=== PATIENT | female | born 1945 | race Caucasian/White ===

== ENCOUNTER → 2018-09-26 | Day surgery (SDC) | payer MEDICARE ==
[~2018-09-26] MED LIST: ACYC800T PO; ALEN70TA6 PO; ASPI-482 PO; BIOT1TAB2 PO; CALC-98; ERYT1OIN6 OP; FLUT16SP NS; GABA300C18; HYDROmorphone 2 MG/ML VIAL IV PRN; IV RINGERS,LACTATED 1000ML 1,000 ML IV SCH; LIDOCAINE 1% PF 2 ML VIAL. ID PRN; LIDOCAINE 1% PF 2 ML VIAL. ONE; LOVA20TA2 PO; MAGN71.5 PO; MIRA50TA PO; MORPHINE SULFATE 4 MG/ML VIAL. IV PRN; MULT1TAB11 PO; OMEG500C PO; ONDA4TAB12 PO; ONDANSETRON PF 4 MG/2 ML VIAL. IV PRN; OXYB5TAB PO; OXYB5TAB7 PO; OXYC5TAB4 PO; PROCHLORPERAZINE 10 MG/2 ML VIAL. IV PRN; PROPOFOL 40 ML IV ONE; fentaNYL PF VIAL 100 MCG/2 ML VIAL IV PRN
[2018-09-26 11:00] VITALS: BP 115/68
--- NOTE | 2018-09-26 21:41 | HP ---
ADMIT DATE: 09/26/2018 REASON: Positive Cologuard. REFERRING PHYSICIAN: Dr. Carlos Peters. HISTORY OF PRESENT ILLNESS: A 73-year-old female whose past medical history is significant for osteoporosis, hyperlipidemia and history of diverticulosis as well as non-Hodgkin's lymphoma and family history of colon cancer in maternal aunt and colon polyps with her mother seen for interval exam. She had one approximately 25 years ago, which revealed diverticulosis. No diarrhea or constipation has been noted. No bleeding was noted. Weight and appetite otherwise are stable. She has no additional complaints. PAST MEDICAL HISTORY: Hyperlipidemia, osteoporosis, diverticulosis and history of non-Hodgkin's lymphoma. ALLERGIES: IODINE, PENICILLIN AND ERYTHROMYCIN. MEDICATIONS: Include bisphosphonate, Fosamax, lovastatin, magnesium chloride, Myrbetriq and multivitamin. FAMILY HISTORY: Significant for colon cancer with an aunt and colon polyps with her mother. SOCIAL HISTORY: Nonsmoker and nondrinker. PAST SURGICAL HISTORY: Status post cholecystectomy, tonsillectomy, 2, para 2. REVIEW OF SYSTEMS: As per records. PHYSICAL EXAMINATION: GENERAL: Reveals a well-nourished, well-developed female who is alert and cooperative, in no acute distress. VITAL SIGNS: Temperature 97.2, pulse 122 and respiratory rate is 20. HEENT: Normocephalic and atraumatic head. Pupils and extraocular muscles are not tested. Sclerae anicteric. NECK: Supple. LUNGS: Clear. CARDIOVASCULAR: Reveals an S1, S2 without S3, S4 or appreciable murmur. ABDOMEN: Reveals soft abdomen, normal bowel sounds without appreciable hepatosplenomegaly. EXTREMITIES: Reveals no cyanosis, clubbing or edema. IMPRESSION: Positive Cologuard test. Colorectal screening is warranted at this time. Risks and benefits of the procedure including risk of hemorrhage and perforation requiring operation have been discussed. The patient is willing to proceed. OMAR ALCAZAR MD DR: ELIUD/jae JOB#: [id number] / [id number]
== END | disposition home or self-care (01) ==
LOC: ENDOS 09:07
PROVIDERS: ATTEND Internal Medicine Gastroenterology
DX: K57.30 Diverticulosis of large intestine without perforation or abscess without bleeding (principal); K64.0 First degree hemorrhoids; Z79.899 Other long term (current) drug therapy; E78.5 Hyperlipidemia, unspecified; M81.0 Age-related osteoporosis without current pathological fracture; Z83.71 Family history of colonic polyps; Z85.72 Personal history of non-Hodgkin lymphomas; Z88.0 Allergy status to penicillin; Z88.1 Allergy status to other antibiotic agents; Z90.49 Acquired absence of other specified parts of digestive tract; Z98.890 Other specified postprocedural states; Z91.041 Radiographic dye allergy status
CPT/HCPCS: 45378; J2704

== ENCOUNTER → 2019-02-16 | Outpatient (CLI) | payer MEDICARE, BC ==
[2018-09-26 11:00] VITALS: BP 115/68
[~2019-02-16] MED LIST changes: -HYDROmorphone 2 MG/ML VIAL IV PRN; -IV RINGERS,LACTATED 1000ML 1,000 ML IV SCH; -LIDOCAINE 1% PF 2 ML VIAL. ID PRN; -LIDOCAINE 1% PF 2 ML VIAL. ONE; -MORPHINE SULFATE 4 MG/ML VIAL. IV PRN; -ONDANSETRON PF 4 MG/2 ML VIAL. IV PRN; -PROCHLORPERAZINE 10 MG/2 ML VIAL. IV PRN; -PROPOFOL 40 ML IV ONE; -fentaNYL PF VIAL 100 MCG/2 ML VIAL IV PRN
--- NOTE | 2019-02-16 09:39 | RAD ---
EXAM: US right lower extremity nonvascular DATE: 02/16/2019 7:45 AM COMPARISON: None INDICATION: Right calf, swelling due to injury last June TECHNIQUE: Longitudinal and transverse imaging completed with attention to right calf in region of pain/swelling. Contralateral imaging was also performed for comparison purposes. FINDINGS/ IMPRESSION: In the region of swelling in the right upper calf, no discrete soft tissue mass or fluid collection is identified. Equivocal hypoechoic focus within the muscular architecture may represent low-grade focal strain pattern. Electronically signed by: Zeus Gordon MD (02/16/2019 9:37 AM) [facility]
== END | disposition home or self-care (01) ==
LOC: US 07:27
PROVIDERS: ATTEND Family Medicine
DX: M79.89 Other specified soft tissue disorders (principal)
CPT/HCPCS: 76881